=== PATIENT | female | born 1995 | race African-American/Black ===

== ENCOUNTER 2019-05-08 03:06 | Emergency (ER) | payer OTHER ==
[~2019-05-08] VITALS: Ht 165.1 cm; Wt 50.0 kg
--- NOTE | 2019-05-08 04:03 | NUR ---
PT RESTING W/ EVEN RESPIRATIONS. VSS.
--- NOTE | 2019-05-08 04:04 | NUR ---
DISCUSSED PT BP W/ ED PROVIDER, PENDING ADDITIONAL ORDERS.
--- NOTE | 2019-05-08 04:21 | NUR ---
PT RESTING IN BED W/ EVEN RESPIRATIONS. ON CONTINUOUSPULSE OX AT THIS TIME
--- NOTE | 2019-05-08 05:57 | NUR ---
PATIENT GOT SELF OUT OF BED AND URINATED ON THE FLOOR. SHE THEN CLIMBED BACK IN BED AND ABLE TO HAVE PARTIAL CONVERSATION W/ THIS RN. ADVISED PT SHE IS ABLE TO LEAVE WHEN SHE HAS A SOBER RIDE. PT STATED UNDERSTANDING.
[2019-05-08 05:58] VITALS: BP 88/55
--- NOTE | 2019-05-08 06:30 | NUR ---
PT RESTING ON STRETCHER, ROUSABLE TO LIGHT TOUCH. PT CONTINES TO SLUR WORDS AND WHEN ASKED ABOUT RIDE SHE SHAKES HEAD AND DOZES OFF. AWARE. VSS.
--- NOTE | 2019-05-08 06:53 | NUR ---
GAVE REPORT TO LEXI GUARDADO AND RELINQUISHED CARE
--- NOTE | 2019-05-08 07:18 | NUR ---
PT UP TO BATHROOM, GAIT SLOW AND STEADY. GAVE PANTS FROM [employer]ATION B[employer], EXPLAIN TO CALL FAMILY MEMBER FOR RIDE. PT ATTEMPTED TO CALL MOTHER, NUMBER INCORRECT. PT BACK TO BED.
--- NOTE | 2019-05-08 08:05 | NUR ---
Patient/Caregiver given discharge instructions and they have confirmed that they understand the instructions. Patient ambulatory with steady gait.
== END 2019-05-08 08:07 | disposition home or self-care (01) ==
LOC: ED 07:50
DX: F10.120 Alcohol abuse with intoxication, uncomplicated (principal); R11.2 Nausea with vomiting, unspecified
CPT/HCPCS: 99283